=== PATIENT | female | born 1970 | race Caucasian/White ===

== ENCOUNTER 2017-08-26 06:43 | Observation (INO) | payer OTHER ==
[~2017-08-26] VITALS: Ht 170.2 cm; Wt 78.5 kg
[~2017-08-26 06:43] MED LIST: ZOLP5TAB3 PO
[2017-08-26] MEDS ORDERED: SUGAMMADEX SODIUM 200 MG/2 ML VIAL IV PUSH ONE (06:59)
[2017-08-26] MEDS ORDERED: GENTAMICIN SULFATE 80 MG/2 ML VIAL ONE (07:06)
[2017-08-26] MEDS ORDERED: BUPIVACAINE/EPINEPHRINE 0.25% PF 30 ML VIAL ONE (07:06)
[2017-08-26] MEDS ORDERED: CHLORHEXIDINE GLUCONATE 2 % 1 PACK (2 CLOTHS) TOPICAL PRN (07:15)
[2017-08-26] MEDS ORDERED: POVIDONE IODINE 5% (ANTISEPSIS KIT) 4 APPLICATIONS EACH NARE PRN (07:15)
[2017-08-26] MEDS ORDERED: METOPROLOL TARTRATE 25 MG TAB PO PRN (07:15)
[2017-08-26] MEDS ORDERED: LACTATED RINGER'S 1000 ML IV PRN (07:15)
[2017-08-26] MEDS ORDERED: SODIUM CHLORID 0.9% 500 ML IV PRN (07:15)
[2017-08-26] MEDS ORDERED: ACETAMINOPHEN 1000 MG/100 ML 100 ML IV ONE (07:15)
[2017-08-26] MEDS ORDERED: POVIDONE IODINE 7.5% SCRUB 118 ML BOTTLE TOPICAL SCH (07:30)
[2017-08-26] MEDS ORDERED: ceFAZolin 2 GM PREMIX 50 ML IV SCH (07:30)
[2017-08-26] MEDS ORDERED: VANCOMYCIN 1000 MG/NS 250 ML (for <70 kg) IV SCH ×2 (07:30)
[2017-08-26] MEDS ORDERED: NALOXONE HCL 0.4 MG/ML AMP IV PUSH PRN (11:00)
[2017-08-26] MEDS ORDERED: MAGNESIUM HYDROXIDE SUSP 30 ML CUP PO PRN (11:00)
[2017-08-26] MEDS ORDERED: ONDANSETRON HCL 4 MG/2 ML VIAL IVP PRN (11:00)
[2017-08-26] MEDS ORDERED: BISACODYL 10 MG SUPP RECTAL PRN (11:00)
[2017-08-26] MEDS ORDERED: ACETAMINOPHEN/HYDROcodone 325 MG/10 MG TAB PO PRN (11:00)
[2017-08-26] MEDS ORDERED: Post-op Orders (for Pharmacy) XX ONE (11:00)
[2017-08-26] MEDS ORDERED: ALUMINUM/MAGNESIUM/SIMETH 30 ML CUP PO PRN (11:00)
[2017-08-26] MEDS ORDERED: ZOLPIDEM TARTRATE 5 MG TAB PO PRN (11:00)
--- NOTE | 2017-08-26 11:04 | PD.OP ---
cc: Tyler Manning MD Operative Report Date of Surgery: Aug 26, 2017 Preoperative Diagnosis: Left sacroiliitis Postoperative Diagnosis: Same Procedure: Left sacroiliac joint fusion with internal fixation and bone grafting Anesthesia: Gen. Surgeon: Tyler Manning Edging Machine Feeder(s): HOUSTON Feliz Operation and Findings: EBL: 25 cc INDICATIONS: Patient is a 39-year-old female with long-standing treatment of chronic left sacroiliitis. Injections have been very helpful but only short lived. She now presents for surgical treatment. NOTE: Brenda Feliz PA-C was present for the entire surgical procedure as my or first assist registered nurse. In my medical opinion her skill and care was necessary for proper management of this patient. COMPANY: [employer] Primary screw: 55 mm. Secondary screw: 45 mm PROCEDURE: The patient was brought the operating room and anesthetized in the supine position. The patient was positioned prone on a Desean table. Fluoroscopy was brought in from the opposite side of the table. Inlet view, outlet view and lateral views were taken. Skin markings were prepared. A 1.5 cm incision was made in line with a line from the greater sciatic notch and the cephalad border of the sacrum. We used a starting point that was approximately 1/2-2/3 from the sciatic notch. A pin was then placed across the sacroiliac joint controlling position in the inlet view, outlet view and lateral. The pin was positioned to the edge of the sacroiliac joint and into the sacroiliac joint. A proper tube was utilized. This was then drilled to proper size and a guide tube was fixated to the bone. We used the SImmetry system. We then used a scraper followed by use of a series of cutting devices gaining entrance into the sacroiliac joint and opening and removing cartilaginous material from the sacroiliac joint. Reamings from the drilling was saved and used with demineralized bone matrix. We used the proper size reamers which were deployed to their fullest extent. We then placed bone graft using the bone graft placement device. And then advanced the pin into the ilium. This was measured carefully for proper length screw. We used the drill to go past the other cortex of the sacroiliac joint. We used a primary screw first placing into good position within the sacral ala and in the region of the S1 vertebral body. Position was very satisfactory A second pin was advanced placing it between the first and second sacral foramen. This was checked in the inlet view outlet view and lateral. This was drilled and measured properly for a proper length secondary screw. The secondary screw was positioned without complication. Intraoperative x-rays were obtained. Alignment was satisfactory. The wound was irrigated copiously with antibiotic irrigation. The fascia was closed with interrupted Vicryl suture skin and subcutaneous tissue with 3-0 Vicryl suture followed by Dermabond. The sponge count needle counts and sponge counts were all correct. The patient tolerated the procedure well as taken to the recovery room in satisfactory condition. FINDINGS: There was no complication was appreciated. Both screws appeared be in very satisfactory alignment and position. No complication was noted Tyler Manning MD Aug 26, 2017 11:04
[2017-08-26] MEDS ORDERED: HYDR-3583 PO (11:05)
[2017-08-26] MEDS ORDERED: *ONDANSETRON 4 MG VIAL PERIprocedural Use ONLY ONE (11:08)
[2017-08-26] MEDS ORDERED: *morphine SULFATE 4 MG/ML PERIprocedure ONLY ONE (11:26)
[2017-08-26] MEDS ORDERED: DO NOT ADM ANY ANTICOAGULANT DRUGS PRN (11:30)
[2017-08-26] MEDS: LACTATED RINGER'S 1000 ML INJ 1,000 ML IV SCH ×2 (11:34→23:25)
[2017-08-26] MEDS ORDERED: MIDAZOLAM HCL 5 MG/5 ML VIAL ONE (11:51)
[2017-08-26 12:00] VITALS: BP 118/71; PULSE 62; RESP 16; TEMP 95.5; O2SAT 98
[2017-08-26] MEDS ORDERED: LACTATED RINGER S IV ONE (12:00)
[2017-08-26] MEDS ORDERED: LIDOCAINE HCL 1% PF 5 ML SYRINGE OTHER ONE (12:00)
[2017-08-26] MEDS ORDERED: PROPOFOL 200 MG/20 ML AMP IV ONE (12:00)
[2017-08-26] MEDS ORDERED: PHENYLEPH/NS 1000 MCG/10 ML SYR IV ONE (12:00)
[2017-08-26] MEDS ORDERED: ePHEDrine/NS 25 MG/5 ML SYRINGE IV ONE (12:00)
[2017-08-26] MEDS ORDERED: ONDANSETRON HCL 4 MG/2 ML VIAL IV PUSH ONE (12:00)
[2017-08-26] MEDS ORDERED: DEXAMETHASONE SOD PHOS 4 MG/ML VIAL IV ONE (12:00)
[2017-08-26] MEDS ORDERED: ROCURONIUM INJ 50 MG/5 ML SYRINGE IV PUSH ONE (12:00)
[2017-08-26] MEDS: ACETAMINOPHEN/HYDROcodone 325 MG/10 MG TAB PO PRN ×2 (15:12→19:44)
[2017-08-26 16:00] VITALS: BP 121/84; PULSE 67; RESP 17; TEMP 97.1; O2SAT 98
--- NOTE | 2017-08-26 16:49 | RADRPT ---
EXAM DATE/TIME: 08/26/2017 09:25 [facility] COMPARISON: No previous studies available for comparison. INDICATIONS : Left SI joint fusion. MEDICAL HISTORY : Unobtainable. SURGICAL HISTORY : Unobtainable. ENCOUNTER: Initial ACUITY: 1 day PAIN SCORE: Non-responsive. LOCATION: Left SI joint. FINDINGS: Two-view examination of the sacrum demonstrates screw fixation left sacroiliac joint. Normal alignmen t. CONCLUSION: 1. Fixation left SI joint. Ignacio Ortega MD on August 26, 2017 at 16:47 Board Certified Radiologist. This report was verified electronically.
[2017-08-26 19:45] VITALS: BP 130/71; PULSE 69; RESP 16; TEMP 97.1; O2SAT 95
[2017-08-27] VITALS: BP 137/77; PULSE 78; RESP 16; TEMP 97.9; O2SAT 95
[2017-08-27] MEDS: ACETAMINOPHEN/HYDROcodone 325 MG/10 MG TAB PO PRN ×3 (00:13→11:59)
[2017-08-27 03:46] VITALS: BP 116/69; PULSE 59; RESP 16; TEMP 97; O2SAT 97
--- NOTE | 2017-08-27 07:42 | HHI.DCPOC ---
Discharge Care Plan Diagnosis: (1) Sacroiliac inflammation Your Health Problems Are: Difficulty with ADL Incision/Drains Swelling Goals to Promote Your Health * To prevent worsening of your condition and complications * To maintain your health at the optimal level Directions to Meet Your Goals Take your medications as prescribed Follow your dietary instruction Follow activity as directed Keep your appointments as scheduled Take your immunizations and boosters as scheduled If your symptoms worsen call your PCP, if no PCP go to Urgent Care Center or Emergency Room Smoking is Dangerous to Your Health. Avoid second hand smoke Call the 24-hour hour crisis hotline for domestic abuse at Brenda Feliz Aug 27, 2017 07:42
--- NOTE | 2017-08-27 07:43 | HHI.DS ---
Discharge Summary Admission Date Aug 26, 2017 at 11:00 Discharge Date: Aug 27, 2017 Admitting Diagnosis see below Diagnosis: (1) Sacroiliac inflammation Diagnosis: Principal ICD Codes: M46.1 - Sacroiliitis, not elsewhere classified Procedures Left SI joint fusion, bone graft. Brief History This is a 47 year old female patient Hospital Course TTWBing left leg. walker. Pt Condition on Discharge: Stable Discharge Disposition: Discharge Home Discharge Instructions Diet Instructions: As Tolerated, No Restrictions, High Fiber Diet Additional Diet Instructions: High fiber diet for 3-5 days Activities You Can Perform: Toe Touch Weight Bearing Activities to Avoid: Strenuous Activity Additional Activity Instruc.: Walker for assistance New Medications: Hydrocodone/Acetaminophen (Hydrocodone-Acetamin 10-325 mg) 10 Mg-325 Mg Tablet 1 TAB PO Q4H PRN for Pain, #50 TAB Continued Medications: Zolpidem (Zolpidem) 5 Mg Tab 5 MG PO HS PRN for INSOMNIA, TAB 0 Refills Brenda Feliz Aug 27, 2017 07:43
[2017-08-27] MEDS ORDERED: WALKER WHEELS/F1 MIS (07:44)
--- NOTE | 2017-08-27 07:47 | PD.ORT.PN ---
Subjective Subjective Remarks Doing well with moderate pain left buttock. Tender with direct pressure. Denies any new radiating leg pain. Very pleased with care at the hospital. Ready for discharge. Needs a walker. denies CP, SOB or abd pain. Objective Vitals Vital Signs Date Time Temp Pulse Resp B/P (MAP) Pulse Ox O2 Delivery O2 Flow Rate FiO2 08/27/17 03:46 97.0 59 16 116/69 (85) 97 08/27/17 00:00 97.9 78 16 137/77 (97) 95 08/26/17 21:00 21 08/26/17 19:45 97.1 69 16 130/71 (90) 95 08/26/17 16:00 97.1 67 17 121/84 (96) 98 08/26/17 12:00 95.5 62 16 118/71 (87) 98 08/26/17 11:30 82 16 138/62 (87) 100 Nasal Cannula 2 08/26/17 11:15 92 19 126/56 (79) 100 Nasal Cannula 2 08/26/17 11:07 98.6 107 18 128/62 (84) 100 Nasal Cannula 3 I/O 08/26/17 08/26/17 08/26/17 08/27/17 08/27/17 08/27/17 07:00 15:00 23:00 07:00 15:00 23:00 Intake Total 1720 ml 580 ml 240 ml Output Total 410 ml Balance 1310 ml 580 ml 240 ml Intake Oral 480 ml 240 ml IV Total 1720 ml 100 ml Output Urine Total 400 ml Estimated Blood Loss 10 ml # Voids 1 2 0 # Bowel Movements 0 0 Procedures Left SI joint fusion, bone graft. Objective Remarks Laying in bed NAD VSS LLE Left hip/buttock dressing c/d/i, minimal SS drainage, tender, no erythema +motor at, +sens, +nvi Neg homans sign Assessment & Plan Ortho Post Op Day #: 1 Problem List: (1) Sacroiliac inflammation ICD Codes: M46.1 - Sacroiliitis, not elsewhere classified Assessment and Plan pod#1 s/p Left SI joint fusion Ortho stable. PO pain meds as needed. Ice left hip and buttcok BID for 5-7 days. TTWBing Left LE. Walker as needed. Order written for DME. Dry dressing changes daily. Ok to shower after 48 hours. D/C home today. No HHC needed. F/U in 2 weeks as scheduled. Brenda Feliz Aug 27, 2017 07:47
[2017-08-27 08:00] VITALS: BP 126/73; PULSE 64; RESP 18; TEMP 97.3; O2SAT 94
[2017-08-27 12:00] VITALS: BP 121/69; PULSE 67; RESP 20; TEMP 97.7; O2SAT 96
[2017-08-27] MEDS ORDERED: DOCUSATE SODIUM 100 MG CAP PO SCH (21:00)
[2017-08-27] MEDS ORDERED: MULTIVITAMINS/MINERALS THERAPEUTIC TAB PO SCH (21:00)
== END 2017-08-27 12:22 | disposition home or self-care (01) ==
LOC: HSDC 06:43 → INTOOBSV 11:00 → HSDI 11:00 → N06A 11:51
PROVIDERS: ADMIT Orthopaedic Surgery Orthopaedic Surgery of the Spine; ATTEND Orthopaedic Surgery Orthopaedic Surgery of the Spine
DX: M46.1 Sacroiliitis, not elsewhere classified (principal); M51.36 Other intervertebral disc degeneration, lumbar region
CPT/HCPCS: 01160; 27279; 72220; 76000; 94150; 96365; 96366; 96376; 97162; C1713; G0378; G8987; G8988; J0131; J0690; J1100; J1580; J2270; J2370; J2405; J3370; J7050; J7120; J2250